=== PATIENT | male | born 1940 | race Caucasian/White ===

== ENCOUNTER 2017-09-01 07:24 | Outpatient (CLI) | payer OTHER | END 2017-09-01 14:49 | disposition home or self-care (01) | LOC: LAB 07:24 | DX: C64.2 Malignant neoplasm of left kidney, except renal pelvis (principal); R97.21 Rising PSA following treatment for malignant neoplasm of prostate ==

== ENCOUNTER 2017-09-01 08:02 | Outpatient (CLI) | payer OTHER | END 2017-09-01 15:58 | disposition home or self-care (01) | LOC: MRI 08:02 | DX: C64.2 Malignant neoplasm of left kidney, except renal pelvis (principal) | CPT/HCPCS: 74181 ==

== ENCOUNTER 2017-10-30 07:21 | Outpatient (CLI) | payer OTHER | END 2017-10-30 07:26 | disposition home or self-care (01) | LOC: LAB 07:21 | DX: E11.65 Type 2 diabetes mellitus with hyperglycemia (principal); E78.2 Mixed hyperlipidemia ==

== ENCOUNTER 2017-11-14 08:51 | Outpatient (CLI) | payer OTHER | END 2017-11-14 09:06 | disposition home or self-care (01) | LOC: LAB 08:51 | DX: E11.9 Type 2 diabetes mellitus without complications (principal); K86.2 Cyst of pancreas ==

== ENCOUNTER 2018-02-10 07:35 | Outpatient (CLI) | payer OTHER | END 2018-02-10 07:41 | disposition home or self-care (01) | LOC: LAB 07:35 | DX: E11.65 Type 2 diabetes mellitus with hyperglycemia (principal); E11.21 Type 2 diabetes mellitus with diabetic nephropathy; E78.2 Mixed hyperlipidemia; D68.8 Other specified coagulation defects ==

== ENCOUNTER 2019-01-11 07:10 | Outpatient (CLI) | payer OTHER | END 2019-01-11 07:21 | disposition home or self-care (01) | LOC: TOM 07:10 | DX: Q45.3 Other congenital malformations of pancreas and pancreatic duct (principal) ==

== ENCOUNTER 2019-02-06 08:12 | Outpatient (CLI) | payer OTHER | END 2019-02-06 08:15 | disposition home or self-care (01) | LOC: RAD 08:12 | DX: M54.6 Pain in thoracic spine (principal); M42.1 Adult osteochondrosis of spine ==

== ENCOUNTER 2019-06-14 07:46 | Outpatient (CLI) | payer OTHER | END 2019-06-14 08:01 | disposition home or self-care (01) | LOC: LAB 07:46 | DX: C64.2 Malignant neoplasm of left kidney, except renal pelvis (principal) ==

== ENCOUNTER 2019-09-05 12:43 | Outpatient (CLI) | payer OTHER | END 2019-09-05 14:07 | disposition home or self-care (01) | LOC: SONOGRAMA 12:43 | PROVIDERS: ATTEND Pathology Anatomic Pathology & Clinical Pathology | DX: E04.2 Nontoxic multinodular goiter (principal) ==

== ENCOUNTER 2019-10-28 07:43 | Outpatient (CLI) | payer OTHER | END 2019-10-28 07:50 | disposition home or self-care (01) | LOC: LAB 07:43 | PROVIDERS: ATTEND Specialist | DX: N40.1 Benign prostatic hyperplasia with lower urinary tract symptoms (principal); Z12.11 Encounter for screening for malignant neoplasm of colon; E78.2 Mixed hyperlipidemia; E03.8 Other specified hypothyroidism ==

== ENCOUNTER 2019-10-29 07:25 | Outpatient (CLI) | payer OTHER | END 2019-10-29 07:47 | disposition home or self-care (01) | LOC: LAB 07:25 | PROVIDERS: ATTEND Specialist | DX: N40.1 Benign prostatic hyperplasia with lower urinary tract symptoms (principal); E78.2 Mixed hyperlipidemia; Z12.11 Encounter for screening for malignant neoplasm of colon; E03.8 Other specified hypothyroidism ==

== ENCOUNTER → 2019-12-03 | Outpatient (CLI) | payer OTHER | END | disposition home or self-care (01) | LOC: RAD → MRI 07:15 → RAD 07:15 | PROVIDERS: ATTEND Specialist | DX: C25.9 Malignant neoplasm of pancreas, unspecified (principal); D49.0 Neoplasm of unspecified behavior of digestive system | CPT/HCPCS: 74181 ==